=== PATIENT | female | born 1950 | race Caucasian/White ===

== ENCOUNTER 2023-03-19 11:17 | Outpatient (CLI) | payer MEDICARE, BC | END 2023-03-19 11:18 | disposition home or self-care (01) | LOC: CSHER/OP 11:17 | PROVIDERS: ATTEND Nurse Practitioner Family | DX: R10.9 Unspecified abdominal pain (principal) | CPT/HCPCS: 74018 ==

== ENCOUNTER 2023-03-19 11:52 | Emergency (ER) | payer MEDICARE, BC ==
[~2023-03-19 11:52] MED LIST: Iopamidol 300 61% 100 ML VIAL FS ONE
[2023-03-19 13:02] LABS: Bilirubin Neg (Negative); Blood, Urine Negative (Negative); Clarity Clear (Clear); Glucose, Urine (Dipstick) Normal (Negative); Ketone, Urine Negative (Negative); Leukocyte Negative (Negative); Nitrite Negative (Negative); Protein, Urine (Dipstick) Negative (Neg-Trace); Urobilinogen Normal mg/dL (Less than 2)
[2023-03-19 13:35] LABS: ALT (SGPT) 25 U/L (8-55); AST (SGOT) 22 U/L (5-34); Albumin 5.1 g/dL (3.4-4.8); Alkaline Phosphatase 46 U/L (40-110); Anion Gap 15 mmol/L (10-20); BUN (Urea Nitrogen) 12 mg/dL (9.8-20.1); Bilirubin, Total 0.4 mg/dL (0.2-1.2); Calc. Creatinine Clearance 0 mL/min (70-130); Calcium 10.1 mg/dL (7.8-10.44); Carbon Dioxide 24 mmol/L (23-31); Chloride 105 mmol/L (98-107); Estimated GFR 86; Glucose 114 mg/dL (80-115); Protein, Total 8.1 g/dL (5.8-8.1); Sodium 140 mmol/L (136-145)
[2023-03-19 13:53] LABS: #Basophils 0.1 10x3/uL (0.0-0.2); #Eosinphils 0.1 10x3/uL (0.0-0.5); #Monocytes 0.4 10x3/uL (0.0-1.1); #Neutrophils 3.5 10x3/uL (1.5-8.4); %Eosinophils 2.2 % (0.0-6.0); %Lymphocytes 31.4 % (18.0-47.0); %Monocytes 6.6 % (0.0-10.0); %Neutrophils 58.5 % (40.0-75.0); Hematocrit 45.6 % (34.9-44.5); Hemoglobin 15.3 g/dL (12.0-15.5); Mean Corpuscular HGB CONC 33.6 g/dL (32.0-36.0); Mean Corpuscular Hemoglobin 30.9 pg (27.0-33.0); Mean Corpuscular Volume 92.1 fl (81.6-98.3); Mean Platelet Volume 9.9 fl (7.4-10.4); Platelet Count 165 10x3/uL (150-450); RBC Distribution Width 12.3 % (11.5-14.5); Red Blood Cell (RBC) Count 4.95 10x6/uL (3.90-5.03)
[2023-03-19 14:05] LABS: Bacteria/HPF None Seen HPF (None Seen); CAUTI Indications for Culture Pelvic or flank pain; RBC/HPF None Seen HPF (0-3); Squamous Epithelial None Seen HPF (0-3); WBC/HPF None Seen HPF (0-3)
[2023-03-19 14:06] LABS: Urine Culture Reflex No No
== END 2023-03-19 13:05 | disposition home or self-care (01) ==
LOC: CSHERS 11:52
DX: R10.2 Pelvic and perineal pain (principal)
CPT/HCPCS: 36415; 74018; 74177; 80053; 81001; 85025; Q9967